=== PATIENT | female | born 1975 | race Caucasian/White ===

== ENCOUNTER 2019-09-15 16:56 | Emergency (ER) | payer OTHER ==
[~2019-09-15] VITALS: Ht 157.5 cm; Wt 77.1 kg
[~2019-09-15 16:56] MED LIST: ALBU8.5H6 INH; AMOX1TAB61 PO; CETI10CA PO; CLOM50TA16 PO; CLON2TAB16 PO; EPIPEN 2-P0.3 MG/0.3 IJ; GLYB2.5T2 PO; METF500T16 PO; PREN1COM3 PO; SIMV40TA18 PO; [UNRECOGNIZED DRUG - OTHER] PO
[2019-09-15] MEDS ORDERED: IV NORMAL SALINE 1000ML BAG 1,000 ML IV ONE ×2 (17:30)
[2019-09-15 17:45] LABS: BASO # 0.1 x10^3/uL (0.0-0.2); BASO % 1 % (0-3); EOS # 0.1 x10^3/uL (0.0-0.7); EOS % 1 % (0-3); HEMOGLOBIN 13.9 g/dL (12.0-15.5); LYMPH # 2.7 x10^3/uL (1.0-4.8); LYMPH % 32 % (24-48); MEAN CORPUSCULAR HEMOGLOBIN 31 pg (25-35); MEAN CORPUSCULAR HGB CONC 35 g/dL (31-37); MEAN CORPUSCULAR VOLUME 89 fL (79-100); MONO # 0.4 x10^3/uL (0.0-1.1); MONO % 5 % (0-9); NEUT # 5.2 x10^3/uL (1.8-7.7); NEUT % 61 % (31-73); PLATELET COUNT 283 x10^3/uL (140-400); RED BLOOD COUNT 4.51 x10^6/uL (3.50-5.40); RED CELL DISTRIBUTION WIDTH 13.1 % (11.5-14.5); WHITE BLOOD COUNT 8.4 x10^3/uL (4.0-11.0)
[2019-09-15 17:53] LABS: CREATININE 0.7 mg/dL (0.6-1.0); GFR 90.5; POTASSIUM 4.2 mmol/L (3.5-5.1)
[2019-09-15 18:01] LABS: ALBUMIN 3.7 g/dL (3.4-5.0); ALBUMIN/GLOBULIN RATIO 0.9 (1.0-1.7); TOTAL BILIRUBIN 0.4 mg/dL (0.2-1.0)
--- NOTE | 2019-09-15 18:37 | PHYS DOC ---
Past Medical History Past Medical History: Anxiety, Bronchitis, Diabetes-Type II, High Cholesterol, Hypertension (JUAN PATEL APRN) Past Surgical History: Cholecystectomy, Other Additional Past Surgical Histo: right shoulder surgery (JUAN PATEL APRN) Alcohol Use: None Drug Use: None (JUAN PATEL APRN) Attending Signature I have participated in the care of this patient and I have reviewed and agree with all pertinent clinical information above including history, exam, and recommendations. (COBY ORR MD) Adult General Chief Complaint Chief Complaint: BLOOD SUGAR PROBLEM HPI HPI Patient is a 44 year old female with history of diabetes type 2, high cholesterol, hypertension, who presents to the ED today complaining of hyperglycemia. Patient is also complaining of a mass on the right side of her neck. Patient reports she is supposed to be on the right and metformin as well as Xultophy for diabetes. She states she noted a mass on the side of her neck which she googled and it was noted as one of the side effects of Xultophy. She stopped taking the medicine now her blood glucose is running in the 300s. She s tates she called her doctor and she was told she can be seen next week but she couldn't wait until then. She states she also has a sore throat which she believes is a side effect of the same medicine. (JUAN PATEL APRN) Review of Systems Review of Systems Constitutional: Denies fever or chills [] Eyes: Denies change in visual acuity, redness, or eye pain [] HENT: Denies nasal congestion or sore throat [] Respiratory: Denies cough or shortness of breath [] Cardiovascular: No additional information not addressed in HPI [] GI: Denies abdominal pain, nausea, vomiting, bloody stools or diarrhea [] : Denies dysuria or hematuria [] Musculoskeletal: Denies back pain or joint pain [] Integument: Reports mass on the side of the neck Neurologic: Denies headache, focal weakness or sensory changes [] Endocrine: Reports hyperglycemia All other systems were reviewed and found to be within normal limits, except as documented in this note. (JUAN PATEL APRN) Current Medications Current Medications Current Medications Medications (Trade) Dose Ordered Sig/Hernandez Start Time Stop Time Status Last Admin Dose Admin Sodium Chloride 1,000 ml @ 1,000 mls/hr 1X ONCE 09/15/19 17:30 09/15/19 18:29 DC 09/15/19 17:30 1,000 MLS/HR (COBY ORR MD) Allergies Allergies Allergies Coded Allergies Type Severity Reaction Last Updated Verified diphenhydramine Allergy Intermediate hives, itches, hands go numb 08/23/18 Yes sitagliptin Allergy Intermediate rash, itches, N/V 08/23/18 Yes ondansetron Allergy Mild Rash 08/23/18 Yes prochlorperazine Adverse Reaction Severe BILATERAL HAND NUMBNESS AND TINGLING 08/23/18 Yes (COBY ORR MD) Physical Exam Physical Exam Constitutional: Well developed, well nourished, no acute distress, non-toxic appearance. [] HENT: Normocephalic, atraumatic, bilateral external ears normal, oropharynx moist, no oral exudates, nose normal. [] Eyes: PERRLA, EOMI, conjunctiva normal, no discharge. [] Neck: Normal range of motion, no tenderness, supple, no stridor. [] Cardiovascular:Heart rate regular rhythm, no murmur [] Lungs & Thorax: Bilateral breath sounds clear to auscultation [] Abdomen: Bowel sounds normal, soft, no tenderness, no masses, no pulsatile masses. [] Skin: Warm, dry, tinny possible lympnode noted on the right clavical region. Back: No tenderness, no CVA tenderness. [] Extremities: No tenderness, no cyanosis, no clubbing, ROM intact, no edema. [] Neurologic: Alert and oriented X 3, normal motor function, normal sensory function, no focal deficits noted. [] Psychologic: Affect normal, judgement normal, mood normal. [] (JUAN PATEL APRN) Current Patient Data Vital Signs Vital Signs Date Time Temp Pulse Resp B/P (MAP) Pulse Ox O2 Delivery O2 Flow Rate FiO2 09/15/19 19:15 79 15 198/97 (130) 99 Room Air 09/15/19 17:15 98.4 98.4 (COBY ORR MD) Lab Values Laboratory Tests Test 09/15/19 17:22 09/15/19 17:35 09/15/19 19:30 Glucose (Fingerstick) 520 mg/dL (70-99) *H 331 mg/dL (70-99) H White Blood Count 8.4 x10^3/uL (4.0-11.0) Red Blood Count 4.51 x10^6/uL (3.50-5.40) Hemoglobin 13.9 g/dL (12.0-15.5) Hematocrit 40.0 % (36.0-47.0) Mean Corpuscular Volume 89 fL (79-100) Mean Corpuscular Hemoglobin 31 pg (25-35) Mean Corpuscular Hemoglobin Concent 35 g/dL (31-37) Red Cell Distribution Width 13.1 % (11.5-14.5) Platelet Count 283 x10^3/uL (140-400) Neutrophils (%) (Auto) 61 % (31-73) Lymphocytes (%) (Auto) 32 % (24-48) Monocytes (%) (Auto) 5 % (0-9) Eosinophils (%) (Auto) 1 % (0-3) Basophils (%) (Auto) 1 % (0-3) Neutrophils # (Auto) 5.2 x10^3/uL (1.8-7.7) Lymphocytes # (Auto) 2.7 x10^3/uL (1.0-4.8) Monocytes # (Auto) 0.4 x10^3/uL (0.0-1.1) Eosinophils # (Auto) 0.1 x10^3/uL (0.0-0.7) Basophils # (Auto) 0.1 x10^3/uL (0.0-0.2) Sodium Level 130 mmol/L (136-145) L Potassium Level 4.2 mmol/L (3.5-5.1) Chloride Level 96 mmol/L (98-107) L Carbon Dioxide Level 28 mmol/L (21-32) Anion Gap 6 (6-14) Blood Urea Nitrogen 14 mg/dL (7-20) Creatinine 0.7 mg/dL (0.6-1.0) Estimated GFR (Cockcroft-Gault) 90.5 BUN/Creatinine Ratio 20 (6-20) Glucose Level 476 mg/dL (70-99) H Calcium Level 9.0 mg/dL (8.5-10.1) Total Bilirubin 0.4 mg/dL (0.2-1.0) Aspartate Amino Transferase (AST) 30 U/L (15-37) Alanine Aminotransferase (ALT) 26 U/L (14-59) Alkaline Phosphatase 91 U/L (46-116) Total Protein 8.0 g/dL (6.4-8.2) Albumin 3.7 g/dL (3.4-5.0) Albumin/Globulin Ratio 0.9 (1.0-1.7) L Laboratory Tests 09/15/19 17:35 Laboratory Tests 09/15/19 17:35 (COBY ORR MD) EKG EKG [] (JUAN PATEL APRN) Radiology/Procedures Radiology/Procedures [] (JUAN PATEL APRN) Course & Med Decision Making Course & Med Decision Making Pertinent Labs and Imaging studies reviewed. (See chart for details) This is a 44-year-old female patient presenting to the ED today complaining of hyperglycemia as well as muscle on her neck that she believes originated from taking her diabetes medicine Xultophy, she stopped taking the medicine. CBC with no acute findings, CMP with glucose of 476, anion gap is normal. Sodium 130. Patient was given 2 L of IV fluids in the ED. Preliminary read of the ultrasound shows patient's area of concern on the neck is probably a lymph node Patient was discharged to home. Instructed to contact her PCP and let her know she stopped taking her diabetes medicine. Instructed to continue taking metformin and gylburide. Provided return precautions and discharged in stable condition (JUAN PATEL APRN) Dragon Disclaimer Dragon Disclaimer This electronic medical record was generated, in whole or in part, using a voice recognition dictation system. (JUAN PATEL APRN) Departure Departure Impression: Primary Impression: Hyperglycemia Additional Impression: Lymphadenopathy Disposition: HOME, SELF-CARE Condition: STABLE Referrals: MARYANN MAXWELL MD (PCP) follow up next week Patient Instructions: Hyperglycemia, [id number] Additional Instructions: You were evaluated in the emergency room, your blood glucose was 476. Please contact your doctor and let her/him know you stopped taking some of your medications. In the meantime continue taking the glyburide and metformin. Problem Qualifiers JUAN PATEL APRN Sep 15, 2019 18:37 COBY ORR MD Sep 16, 2019 02:32
[2019-09-15 19:15] VITALS: BP 198/97
--- NOTE | 2019-09-15 23:46 | RAD ---
EXAM: US right neck DATE: 09/15/2019 5:29 PM COMPARISON: None INDICATION: Palpable abnormality at the region of the right neck TECHNIQUE: Longitudinal and transverse imaging with intermittent Doppler sampling completed with attention to elbow abnormality in the region of the right neck FINDINGS/ IMPRESSION: No discrete mass or fluid collection is seen at the site of palpable abnormality. A 0.5 cm lymph node is seen in this region with preserved fatty hilum. Electronically signed by: Prieto Harper MD (09/15/2019 11:43 PM) [facility]
== END 2019-09-15 19:34 | disposition home or self-care (01) ==
LOC: ER 16:56
DX: R59.0 Localized enlarged lymph nodes (principal); E11.65 Type 2 diabetes mellitus with hyperglycemia; E78.00 Pure hypercholesterolemia, unspecified; I10 Essential (primary) hypertension; Z88.5 Allergy status to narcotic agent; Z88.8 Allergy status to other drugs, medicaments and biological substances
CPT/HCPCS: 36415; 76536; 80053; 82962; 85025; 96360; 96361; 99285; J7030

== ENCOUNTER 2020-04-02 13:57 | Emergency (ER) | payer OTHER ==
[~2020-04-02] VITALS: Ht 152.4 cm; Wt 76.3 kg
[2020-04-02 15:01] VITALS: BP 124/79
--- NOTE | 2020-04-02 15:44 | RAD ---
LUMBAR SPINE 2-3V, THORACIC SPINE 3V, PELVIS History: Reason: fell, back pain / Spl. Instructions: / History: Technique: 3 views thoracic spine, 3 views lumbar spine and AP view the pelvis Comparison: None. Findings: Thoracic spine: Normal vertebral body height and alignment. No fracture. Mild multilevel degenerative disc changes. Postop changes upper abdomen. Lumbar spine: Normal vertebral body height and alignment. No fracture. Mild multilevel degenerative disc changes most prominent L4-5 and L5-S1. Lower lumbar facet arthropathy. Pelvis: Normal AP alignment of the hips. No fracture. Impression: 1. No acute osseous abnormality. 2. Mild multilevel thoracolumbar spondylosis. Electronically signed by: Gerald Peters DO (04/02/2020 3:41 PM) [id number]
--- NOTE | 2020-04-02 16:18 | PHYS DOC ---
Past Medical History Past Medical History: Anxiety, Bronchitis, Diabetes-Type II, High Cholesterol, Hypertension Past Surgical History: Cholecystectomy, Other Additional Past Surgical Histo: right shoulder surgery Smoking Status: Never Smoker Alcohol Use: None Drug Use: None General Adult EDM: Chief Complaint: MECHANICAL FALL HPI: HPI: Patient is a 44 year old female who was brought here by EMS from home due to back pain after she fell. Patient says she will carry something on the left side of her body, she was walking and fell over a chair that she did not see. Patient fell down on her knees then twisted her back. Complaining of upper and lower back pain and pelvic pain. Patient denies any neck pain, no headache, no head injury. Patient denies any upper extremity injury. Patient denies any bowel or bladder incontinence. Patient denies any weakness or numbness in his lower extremity. Review of Systems: Review of Systems: Constitutional: Denies fever or chills. [] Eyes: Denies change in visual acuity. [] HENT: Denies nasal congestion or sore throat. [] Respiratory: Denies cough or shortness of breath. [] Cardiovascular: Denies chest pain or edema. [] GI: Denies abdominal pain, nausea, vomiting, bloody stools or diarrhea. [] : Denies dysuria. [] Musculoskeletal: Positive for back pain and pelvic pain Integument: Denies rash. [] Neurologic: Denies headache, focal weakness or sensory changes. [] Endocrine: Denies polyuria or polydipsia. [] Lymphatic: Denies swollen glands. [] Psychiatric: Denies depression or anxiety. [] Heart Score: Risk Factors: Risk Factors: DM, Current or recent (<one month) smoker, HTN, HLP, family history of CAD, obesity. Risk Scores: Score 0 - 3: 2.5% MACE over next 6 weeks - Discharge Home Score 4 - 6: 20.3% MACE over next 6 weeks - Admit for Clinical Observation Score 7 - 10: 72.7% MACE over next 6 weeks - Early Invasive Strategies Allergies: Allergies: Allergies Coded Allergies Type Severity Reaction Last Updated Verified diphenhydramine Allergy Intermediate hives, itches, hands go numb 08/23/18 Yes sitagliptin Allergy Intermediate rash, itches, N/V 08/23/18 Yes ondansetron Allergy Mild Rash 08/23/18 Yes prochlorperazine Adverse Reaction Severe BILATERAL HAND NUMBNESS AND TINGLING 08/23/18 Yes Physical Exam: PE: Constitutional: Well developed, well nourished, no acute distress, non-toxic appearance. [] HENT: Normocephalic, atraumatic, bilateral external ears normal, oropharynx moist, no oral exudates, nose normal. [] Eyes: PERRLA, EOMI, conjunctiva normal, no discharge. [] Neck: Normal range of motion, no tenderness, supple, no stridor. [] Cardiovascular:Heart rate regular rhythm, no murmur [] Lungs & Thorax: Bilateral breath sounds clear to auscultation [] Abdomen: Bowel sounds normal, soft, no tenderness, no masses, no pulsatile masses. [] Skin: Warm, dry, no erythema, no rash. [] Back: No tenderness, no CVA tenderness. [] Extremities: No tenderness, no cyanosis, no clubbing, ROM intact, no edema. [] Neurologic: Alert and oriented X 3, normal motor function, normal sensory function, no focal deficits noted. [] Psychologic: Affect normal, judgement normal, mood normal. [] Current Patient Data: Vital Signs: Vital Signs Date Time Temp Pulse Resp B/P (MAP) Pulse Ox O2 Delivery O2 Flow Rate FiO2 04/02/20 15:01 67 96 04/02/20 13:57 98.3 14 154/87 (109) Room Air 98.3 EKG: EKG: [] Radiology/Procedures: Radiology/Procedures: [][facility] [address] [place] [address] IMAGING REPORT Signed PATIENT: ROXIE ANDINO FACCOUNT: [id number] : 1975 LOCATION: ER AGE: 44 SEX: F EXAM STATUS: REG ER ORD. PHYSICIAN: VALORIE CAMPO DO REASON: fell, back pain PROCEDURE: LUMBAR SPINE 2-3V LUMBAR SPINE 2-3V, THORACIC SPINE 3V, PELVIS History: Reason: fell, back pain / Spl. Instructions: / History: Technique: 3 views thoracic spine, 3 views lumbar spine and AP view the pelvis Comparison: None. Findings: Thoracic spine: Normal vertebral body height and alignment. No fracture. Mild multilevel degenerative disc changes. Postop changes upper abdomen. Lumbar spine: Normal vertebral body height and alignment. No fracture. Mild multilevel degenerative disc changes most prominent L4-5 and L5-S1. Lower lumbar facet arthropathy. Pelvis: Normal AP alignment of the hips. No fracture. Impression: 1. No acute osseous abnormality. 2. Mild multilevel thoracolumbar spondylosis. Electronically signed by: Gerald Peters DO (04/02/2020 3:41 PM) [id number] DICTATED and SIGNED BY: GERALD PETERS DO DATE: 04/02/20 1541 Course & Med Decision Making: Course & Med Decision Making Pertinent Labs and Imaging studies reviewed. (See chart for details) Patient is a 44-year-old female who was evaluated in the ER due to back pain after she fell. X-ray of her thoracic lumbar spine and pelvic did not show any acute fracture or dislocation. Patient was able to move her leg, able to walk without a problem. Patient will be discharged home with pain medication. Dragon Disclaimer: Dragon Disclaimer: This electronic medical record was generated, in whole or in part, using a voice recognition dictation system. Departure Departure Impression: Primary Impression: Back pain Disposition: 01 HOME, SELF-CARE Condition: IMPROVED Referrals: GLADYS PRADHAN MD (PCP) PLEASE FOLLOW UP WITH YOUR DOCTOR FOR REEVALUATION Patient Instructions: Back Pain, Adult Additional Instructions: Thank you for visiting our Emergency Department. We appreciate you trusting us with your care. If any additional problems come up don't hesitate to return to visit us. Please follow up with your primary care provider so they can plan additional care if needed and know about the problem that you had. If symptoms worsen come back to the Emergency Department. Any concerning symptoms that start such as chest pain, shortness of air, weakness or numbness on one side of the body, running high fevers or any other concerning symptoms return to the ER. Scripts Hydrocodone/Apap 5-325 (NORCO 5-325 TABLET) 1 Each Tablet 1 TAB PO PRN Q6HRS PRN for PAIN, #12 TAB 0 Refills Prov: VALORIE CAMPO DO 04/02/20 Justicifation of Admission Dx: Justifications for Admission: Justification of Admission Dx: N/A VALORIE CAMPO DO Apr 02, 2020 16:18
[2020-04-02] MEDS ORDERED: HYDR-3164 PO (16:26)
== END 2020-04-02 17:25 | disposition home or self-care (01) ==
LOC: ER 13:57
DX: M54.5 Low back pain (principal); R10.2 Pelvic and perineal pain; F41.9 Anxiety disorder, unspecified; E11.9 Type 2 diabetes mellitus without complications; E78.00 Pure hypercholesterolemia, unspecified; I10 Essential (primary) hypertension; J42 Unspecified chronic bronchitis; Z90.49 Acquired absence of other specified parts of digestive tract; Z98.890 Other specified postprocedural states; Z88.8 Allergy status to other drugs, medicaments and biological substances; Z88.6 Allergy status to analgesic agent
CPT/HCPCS: 72072; 72100; 72170; 99284